=== PATIENT | female | born 1995 | race African-American/Black ===

== ENCOUNTER 2019-09-17 21:45 | Inpatient (IN) ==
[2019-09-17] MEDS ORDERED: ONDANSETRON 4 MG/2 ML VIAL IV PRN (22:07)
[2019-09-17 22:27] LABS: Basophils % 0.6 % (0.0-0.8); Eosinophils # 0.2 10*3/uL (0.0-0.87); Eosinophils % 2.2 % (0.00-10.9); Hemoglobin 10.2 GM/DL (12.0-16.0); Immature Granulocytes % 0.3 %; Immature Granulocytes Absolute 0.02 #; Lymphocytes # 1.8 10*3/uL (1.4-4.0); Lymphocytes % 26.7 % (21.3-54.2); Mean Corpuscular Volume 82.9 FL (87-102); Mean Platelet Volume 10.8 FL (9.6-12.0); Monocytes % 12.5 % (1.7-12.7); Neutrophils % 57.7 % (38.7-73.9); Platelet Count 274 T/CUMM (130-400); Red Cell Distribution Width 14.1 % (9.3-17.3); White Blood Count 6.8 T/CUMM (4-12)
[2019-09-17 22:47] LABS: Bilirubin,Total 0.5 MG/DL (0.2-1.0); Osmolality,Calculated 272.7 MOS/KG (273-304); Total Protein 7.1 G/DL (6.4-8.3)
[2019-09-18] MEDS ORDERED: ACETAMINOPHEN 500 MG TABLET PO ONE (04:15)
[2019-09-18] MEDS ORDERED: BUTORPHANOL 2 MG/ML VIAL IV PRN (08:04)
[2019-09-18] MEDS ORDERED: MEPERIDINE 50 MG/1 ML VIAL IV PRN (08:04)
[2019-09-18] MEDS ORDERED: OXYTOCIN/LR 20 UNIT/1,000 ML BAG IV SCH (08:30)
[2019-09-18] MEDS: LACTATED RINGERS 1,000 ML IV SCH ×3 (08:36→23:20)
[2019-09-18] MEDS ORDERED: FAMOTIDINE 20 MG/2 ML VIAL IV ONE (10:17)
[2019-09-18] MEDS ORDERED: LACTATED RINGERS 1,000 ML IV ONE ×2 (10:17→20:13)
[2019-09-18] MEDS ORDERED: CITRIC ACID/SODIUM CITRATE 30 ML UDCUP PO ONE (10:17)
[2019-09-18] MEDS ORDERED: diphenhydrAMINE 50 MG/1 ML VIAL IV PRN ×2 (10:17)
[2019-09-18] MEDS ORDERED: NALOXONE 0.4 MG/ML VIAL IV PRN (10:17)
[2019-09-18] MEDS ORDERED: fentaNYL 2 MCG/ROPIV 0.2% EPID 100 ML EPIDURAL SCH (10:30)
[2019-09-18] MEDS: ePHEDrine 50 MG/ML AMP IV PRN ×2 (12:07→12:12)
[2019-09-18 13:21] LABS: Mucus,Urine Occasional /LPF (Occasional); RBC,Urine 1 /HPF (0-4); WBC,Urine 1 /HPF (0-6)
[2019-09-18 13:22] LABS: Apearance,Urine Clear (Clear); Bilirubin,Urine Negative (Negative); Blood, Urine Negative (Negative); Glucose,Urine (UA) Negative (Negative); Ketones,Urine Negative (Negative); Nitrite,Urine Negative (Negative); Protein,Urine Negative; Urine Color Yellow (Yellow); Urine Urobilinogen 0.2 EU/DL (0.2-1.0)
[2019-09-18] MEDS ORDERED: ceFAZolin 2,000 MG in PREMIX 1 EACH IV ONE (16:52)
[2019-09-18] MEDS ORDERED: OXYTOCIN/LR 20 UNIT/1,000 ML BAG IV ONE ×2 (17:00→18:26)
[2019-09-18] MEDS ORDERED: ACETAMINOPHEN 325 MG TABLET PO PRN (18:26)
[2019-09-18] MEDS ORDERED: BENZOCAINE 20%/MENTHOL 0.5% SPRAY 56 GM CAN TOP PRN (18:26)
[2019-09-18] MEDS ORDERED: BISACODYL 10 MG SUPP RECTAL PRN (18:26)
[2019-09-18] MEDS ORDERED: HYDROCORTISONE 2.5% RECTAL CREAM 30 GM TUBE TOP PRN (18:26)
[2019-09-18] MEDS ORDERED: RHO(D) IMMUNE GLOBULIN 300 MCG SYRINGE IM ONE (18:26)
[2019-09-18] MEDS ORDERED: LANOLIN 50% CREAM 0.3 OZ TUBE TOP PRN (18:26)
[2019-09-18] MEDS ORDERED: MEASLES/MUMPS/RUBELLA VACCINE 0.5 ML VIAL SUBCUT ONE (18:26)
[2019-09-18] MEDS ORDERED: oxyCODONE/ACETAMINOPHEN 5-325 MG TABLET PO PRN (18:26)
[2019-09-18] MEDS ORDERED: ONDANSETRON 4 MG/2 ML VIAL IV PRN (18:26)
[2019-09-18] MEDS ORDERED: WITCH HAZEL PADS 100/JAR TOP PRN (18:26)
[2019-09-18] MEDS ORDERED: DIPH/TET/ACEL PERT BOOSTER VACCINE 0.5 ML VIAL IM ONE (18:26)
[2019-09-18] MEDS ORDERED: MORPHINE 10 MG/10 ML VIAL ONE (18:51)
[2019-09-18] MEDS ORDERED: ONDANSETRON 4 MG/2 ML VIAL ONE (18:51)
[2019-09-18] MEDS ORDERED: LIDOCAINE MPF 2% /EPI 20 ML VIAL ONE (18:52)
[2019-09-18] MEDS ORDERED: PHENYLEPHRINE 1 MG/10 ML SYRINGE IV ONE (18:52)
[2019-09-18] MEDS: IBUPROFEN 800 MG TABLET PO PRN (21:10)
[2019-09-19] MEDS: ceFAZolin 1,000 MG in SYRINGE 1 EACH IV SCH ×2 (04:14→11:39)
[2019-09-19 05:42] LABS: Basophils % 0.3 % (0.0-0.8); Eosinophils # 0.1 10*3/uL (0.0-0.87); Eosinophils % 0.9 % (0.00-10.9); Hematocrit 28.4 VOL% (35.7-47.0); Hemoglobin 8.7 GM/DL (12.0-16.0); Immature Granulocytes % 0.7 %; Immature Granulocytes Absolute 0.08 #; Lymphocytes # 1.4 10*3/uL (1.4-4.0); Lymphocytes % 11.9 % (21.3-54.2); Mean Corpuscular HGB Conc 30.6 GM/DL (32-36); Mean Corpuscular Volume 82.1 FL (87-102); Mean Platelet Volume 10.5 FL (9.6-12.0); Monocytes % 7.8 % (1.7-12.7); Neutrophils % 78.4 % (38.7-73.9); Platelet Count 225 T/CUMM (130-400); Red Blood Count 3.46 MC/CUMM (3.8-5.5); Red Cell Distribution Width 14.2 % (9.3-17.3); White Blood Count 12.1 T/CUMM (4-12)
[2019-09-19] MEDS: DOCUSATE SODIUM 100 MG CAPSULE PO SCH ×2 (08:38→22:06)
[2019-09-19] MEDS: FERROUS SULFATE 325 MG TABLET PO SCH ×2 (08:38→22:06)
[2019-09-19] MEDS: MAGNESIUM HYDROXIDE SUSP 30 ML UDCUP PO PRN ×2 (08:38→22:06)
[2019-09-19] MEDS: SIMETHICONE CHEW 80 MG TABLET PO PRN (08:38)
[2019-09-19] MEDS: IBUPROFEN 800 MG TABLET PO PRN ×3 (08:42→22:58)
[2019-09-19] MEDS: oxyCODONE/ACETAMINOPHEN 5-325 MG TABLET PO PRN ×3 (08:42→22:58)
[2019-09-19] MEDS: diphenhydrAMINE CAP 25 MG CAPSULE PO PRN ×2 (10:09→17:04)
[2019-09-20] MEDS: IBUPROFEN 800 MG TABLET PO PRN ×2 (06:39→11:35)
[2019-09-20] MEDS: oxyCODONE/ACETAMINOPHEN 5-325 MG TABLET PO PRN ×2 (06:41→11:34)
[2019-09-20 07:10] VITALS: BP 115/67
[2019-09-20] MEDS ORDERED: HYDROCORTISONE 1% CREAM 28 GM TUBE TOP PRN (08:52)
[2019-09-20] MEDS: MAGNESIUM HYDROXIDE SUSP 30 ML UDCUP PO PRN (09:28)
[2019-09-20] MEDS: SIMETHICONE CHEW 80 MG TABLET PO PRN (09:28)
[2019-09-20] MEDS: DOCUSATE SODIUM 100 MG CAPSULE PO SCH (09:29)
== END 2019-09-20 16:00 | disposition home or self-care (01) | DRG 788 ==
LOC: N.LD 21:45 → N.OB 09-19 02:22
PROVIDERS: ADMIT Specialist; ATTEND Specialist
PROC: LDCSECT (ICD-10-PCS; 2019-09-18 17:30)